=== PATIENT | female | born 1970 | race Caucasian/White ===

== ENCOUNTER → 2016-10-01 | Outpatient (CLI) | payer BC ==
--- NOTE | 2016-10-03 16:12 | DI ---
MRI RIGHT KNEE SCAN, 10/01/2016 9:03 AM: Clinical History: Right knee pain. The technologist indicated the patient was unable to fully extend the knee for this examination. Previous Exam: 05/07/2016. Technique: Axial, coronal, and sagittal PD and fat saturated PD; axial T1 weighted. There is no soft tissue edema. There is a large joint effusion with extensive synovitis involving the suprapatellar bursa and Hoffa's fat pad. There probably is also thickening of the synovial lining. A bnormally hyperintense signal is present in the patella, almost the entire medial and lateral tibial plateaus, and the posterior half of the lateral femoral condyle and the anterior half of the medial f emoral condyle representing edema. These changes may be related to chronic repetitive injury such as seen with a neuropathic joint. The medial and lateral collateral ligaments in the anterior and patrol lady ior cruciate ligaments are normal. There is a flap tear in the posterior horn of the medial meniscus with a blunted appearance of the inner margin of the body of the medial meniscus either representing changes of a prior partial meniscectomy or extensive flap tear. No free fragment or bucket-handle fra gment is identified. The medial meniscus at the junction between the body and anterior horn is displa iraida into the coronary recess with evidence of a tear of the meniscofemoral ligament. The anterior hor n is displaced anteriorly. There is a flap tear at the junction between the posterior horn and body o f the lateral meniscus and this extends anteriorly into the remainder of the body. A prior partial la teral meniscectomy cannot be excluded. There is a partial tear or sprain of the popliteus tendon and a muscle strain of the popliteus muscle. There is tendinosis of the proximal and distal portions of t he patellar tendon with fluid in the deep infrapatellar bursa indicating bursitis. The quadriceps ten don and the tendons of the medial and lateral heads of the gastrocnemius muscle are normal. Marked th inning is present in the cartilaginous surfaces of the medial and lateral compartments with almost co mplete erosion of the articular cartilage of the medial facet of the patella. There is mild subluxati on of the patella laterally. A small medial popliteal cyst is present and this measures approximately 10 x 10 x 30 mm. Readin. Large joint effusion with extensive synovitis changes involving the suprapatellar bursa and Hoffa 's fat pad. There probably is also synovial thickening. Extensive edema is noted in the medial and la teral femoral condyles and tibial plateaus as well as the patella. With the marked erosive changes of the articular surface of the medial and lateral and patellofemoral compartments, the possibility of a neuropathic joint is raised. This patient may have had partial meniscectomies of the medial and lat eral menisci, but if no surgery has been performed and there are flap tears in the posterior horn of the medial meniscus extending to the body and anterior horn. The anterior horn is displaced inferiorl y into the coronary recess and there is a tear of the meniscofemoral ligament. If no meniscectomy has been performed laterally, then there are flap tears at the junction of the posterior horn and body a nd extending anteriorly. Tendinosis is present in the patellar tendon and there is bursitis in the de ep infrapatellar bursa. There is a muscle strain of the popliteus muscle with a partial tear or sprai n of the popliteus tendon. 2. The MCL, LCL, ACL, and PCL are normal. The quadriceps tendon and the tendons of the medial and la teral heads of the gastrocnemius muscle are also normal.
== END ==
LOC: MRI 09:57
PROVIDERS: ATTEND Physician Assistant Surgical
DX: M25.561 Pain in right knee (principal); M25.461 Effusion, right knee; S83.8X1A Sprain of other specified parts of right knee, initial encounter; M23.221 Derangement of posterior horn of medial meniscus due to old tear or injury, right knee; M71.21 Synovial cyst of popliteal space [Baker], right knee; S86.811A Strain of other muscle(s) and tendon(s) at lower leg level, right leg, initial encounter
CPT/HCPCS: 73721

== ENCOUNTER → 2016-10-16 | Outpatient (CLI) | payer BC ==
[2016-10-16 12:13] LABS: HEMATOCRIT 37.8 % (37.0-47.0); HEMOGLOBIN 12.7 g/dL (12.0-16.0); MEAN CORPUSCULAR HEMOGLOBIN 28.2 PG (27-31); MEAN CORPUSCULAR HGB CONC 33.6 g/dL (33-37); MEAN PLATELET VOLUME 10.2 FL (7.4-12.2); RDW COEFFICIENT OF VARIATION 14.4 % (11.5-14.5); RED BLOOD COUNT 4.51 10^6/uL (4.20-5.40); WHITE BLOOD COUNT 9.2 10^3/uL (4.8-10.8)
[2016-10-16 12:22] LABS: ASPARTATE AMINO TRANSFERASE 28 IU/L (8-39); BILIRUBIN,TOTAL 0.5 mg/dL (0.3-1.2); BLOOD UREA NITROGEN 12 mg/dL (7-22); CHLORIDE 105 meq/L (98-112); CREATININE 0.6 mg/dL (0.50-1.20); EST GLOMERULAR FILTRATION > 60 (>60 ml/min/1.73m(2)); GLUCOSE 102 mg/dL (78-110); POTASSIUM 4.2 meq/L (3.8-5.2); SODIUM 142 meq/L (135-145); TOTAL PROTEIN 7.8 g/dL (6.1-8.0)
[2016-10-16 12:28] LABS: BILIRUBIN,URINE NEGATIVE (NEG); CLARITY,URINE CLEAR (CLEAR); GLUCOSE, URINE (UA) NEGATIVE (NEG); LEUKOCYTE ESTERASE ,URINE NEGATIVE (NEG); NITRATE,URINE NEGATIVE (NEG); OCCULT BLOOD,URINE NEGATIVE (NEG); PROTEIN,URINE NEGATIVE (NEG); UROBILINOGEN,URINE 0.2 EU/dL (0.2)
[2016-10-16 12:29] LABS: URINE SAMPLE TYPE CLEAN CATCH URINE
--- NOTE | 2016-10-16 13:40 | EKG ---
[address] [id number] Measurements Intervals [place] Rate: 69 P: 77 IA: 151 QRS: 75 QRSD: 90 T: 70 QT: 382 QTc: 402 Interpretive Statements SINUS RHYTHM WITH OCCASIONAL VENTRICULAR PREMATURE COMPLEXES No previous ECG available for comparison Electronically Signed On 10-18-16 17:14:22 MST by David Julio [email or web address]
== END ==
LOC: LAB 11:54 → EKG 11:54
PROVIDERS: ATTEND Orthopaedic Surgery
DX: Z01.812 Encounter for preprocedural laboratory examination (principal); Z01.810 Encounter for preprocedural cardiovascular examination; M25.561 Pain in right knee; C73 Malignant neoplasm of thyroid gland
CPT/HCPCS: 36415; 80053; 81003; 84443; 85027; 86850; 86900; 86901; 87641; 93005; 93010